=== PATIENT | female | born 1960 | race American Indian/Alaskan Native ===

== ENCOUNTER 2016-08-27 10:48 | Outpatient (CLI) | payer BC | END 2016-08-27 10:49 | disposition home or self-care (01) | LOC: LAB 10:48 | DX: Z00.00 Encounter for general adult medical examination without abnormal findings (principal) | CPT/HCPCS: 36415; 85652; 86140 ==

== ENCOUNTER 2016-09-04 10:24 | Emergency (ER) | payer BC ==
[2016-09-04 11:16] VITALS: BP 153/97
--- NOTE | 2016-09-04 13:13 | Emergency Department Report ---
ED Extremity Problem HPI - General Chief complaint: Extremity Injury, Lower Stated complaint: RT HIP PAIN Time Seen by Provider: 09/04/16 12:07 Source: patient, family Mode of arrival: Ambulatory Limitations: Physical Limitation (unable to bear weight on right leg), Other - History of Present Illness Initial comments: Patient presents today with right hip pain. She states that she went to Dr. Mcwilliams with [facility] and had an x-ray done and was told she needs a right hip replacement. She was told that she needs a cortisone injection in this hip but she declined Dr. Mcwilliams to do it due to insurance coverage. Patient admits to a 10/10 pain in the right hip that radiates down her anterior right leg. She has been using crutches and avoiding weight-bearing due to pain. She denies redness or swelling to the right hip, leg. She admits to taken ibuprofen which has not helped, she also admits to taken hydrocodone from a friend which she state also did not help. MD Complaint: extremity pain -: Gradual Location: right, lower extremity Radiation: distal Severity scale (0 -10): 10 Quality: aching Consistency: constant Improves with: nothing Worsens with: weight bearing, walking Associated Symptoms: denies other symptoms - Related Data Home Medications Medication Instructions Recorded Confirmed Last Taken Ibuprofen [Motrin] 800 mg PO Q8HR PRN 09/04/16 09/04/16 09/04/16 Valsartan-Hctz 80-12.5 mg Tab 1 tab PO DAILY 09/04/16 09/04/16 09/04/16 Previous Rx's Medication Instructions Recorded Last Taken Type Diclofenac Dr [Mendez Alcocer] 75 mg PO DAILY #7 tablet 09/04/16 Unknown Rx methOCARBAMOL [Robaxin TAB] 500 mg PO BID #14 tab 09/04/16 Unknown Rx Allergies Allergy/AdvReac Type Severity Reaction Status Date / Time No Known Allergies Allergy Unverified 09/04/16 11:16 ED Review of Systems ROS: Stated complaint: RT HIP PAIN Other details as noted in HPI Constitutional: denies: chills, fever Respiratory: denies: cough, shortness of breath, wheezing Cardiovascular: denies: chest pain, palpitations Gastrointestinal: denies: abdominal pain, nausea, diarrhea Genitourinary: denies: urgency, dysuria, discharge Musculoskeletal: as per HPI Skin: denies: rash, lesions Neurological: denies: headache, weakness, paresthesias ED Past Medical Hx - Past Medical History Previous Medical History?: Yes Additional medical history: Right hip pain and right knee - Surgical History Past Surgical History?: Yes Additional Surgical History: Right knee surgery - Medications Home Medications: Home Medications Medication Instructions Recorded Confirmed Last Taken Type Diclofenac Dr [Voltaren Dr] 75 mg PO DAILY #7 tablet 09/04/16 Unknown Rx Ibuprofen [Motrin] 800 mg PO Q8HR PRN 09/04/16 09/04/16 09/04/16 History Valsartan-Hctz 80-12.5 mg Tab 1 tab PO DAILY 09/04/16 09/04/16 09/04/16 History methOCARBAMOL [Robaxin TAB] 500 mg PO BID #14 tab 09/04/16 Unknown Rx ED Physical Exam - General Limitations: Other General appearance: alert, in no apparent distress - Head Head exam: Present: atraumatic, normocephalic - Eye Eye exam: Present: normal appearance - Respiratory Respiratory exam: Present: normal lung sounds bilaterally. Absent: respiratory distress - Cardiovascular Cardiovascular Exam: Present: regular rate, normal rhythm. Absent: systolic murmur, diastolic murmur, rubs, gallop - GI/Abdominal GI/Abdominal exam: Present: soft, normal bowel sounds - Expanded Lower Extremity Exam Right Hip exam: Present: normal inspection. Absent: full ROM, tenderness, swelling Upper Leg exam: Present: normal inspection, full ROM. Absent: tenderness, swelling Knee exam: Present: normal inspection, full ROM. Absent: tenderness, swelling Lower Leg exam: Present: normal inspection, full ROM. Absent: tenderness, swelling Ankle exam: Present: normal inspection, full ROM. Absent: tenderness, swelling Foot/Toe exam: Present: normal inspection, full ROM. Absent: tenderness, swelling Neuro vascular tendon exam: Present: no vascular compromise. Absent: abnormal cap refill Gait: Positive: unable to bear weight (using crutches) - Back Exam Back exam: Present: normal inspection, full ROM. Absent: tenderness - Neurological Exam Neurological exam: Present: alert, oriented X3 - Psychiatric Psychiatric exam: Present: normal affect, normal mood ED Course Vital Signs 09/04/16 11:09 Temperature 98.3 F Pulse Rate 59 L Respiratory 18 Rate Blood Pressure 153/97 Blood Pressure 153/97 [Right] O2 Sat by Pulse 100 Oximetry ED Medical Decision Making - Medical Decision Making Patient presents with right hip pain. Patient states had a hip x-ray and a knee x-ray on the right side and was told she needs a hip replacement per [facility] surgeon Dr. Mcwilliams. She has been taken ibuprofen and has also taken hydrocodone for the pain. She has not yet gotten a steroid injection due to insurance coverage. I will give her diclofenac daily 2 weeks and her own set of crutches and she is using her uncles at this time. I will refer her to orthopedic surgeon. - Differential Diagnosis hip fracture, OA Critical Care Time: No Critical care attestation.: If time is entered above; I have spent that time in minutes in the direct care of this critically ill patient, excluding procedure time. ED Disposition Clinical Impression: Osteoarthritis of right hip, Right hip pain Disposition: DISCHARGED TO HOME OR SELFCARE Is pt being admited?: No Does the pt Need Aspirin: No Condition: Stable Instructions: Osteoarthritis (ED) Additional Instructions: Please understand the importance of following up with orthopedic surgeon as it can decreased functionality and use of right leg with avoidance. Please understand that you are not to take diclofenac with any other NSAID including advil, naproxen as it can affect her kidneys. Please also avoid drinking alcohol while taking any kind of muscle relaxant. Please follow-up if discoloration of right lower extremity, increased pain, redness,swelling. Prescriptions: Diclofenac Dr [Voltaren Dr] 75 mg PO DAILY #7 tablet methOCARBAMOL [Robaxin TAB] 500 mg PO BID #14 tab Referrals: PRIMARY CARE, [Primary Care Provider] - 3-5 Days Forms: Work/School Release Form(ED) Time of Disposition: 13:52
[2016-09-04] MEDS ORDERED: TORADOL IM ONE (13:40)
== END 2016-09-04 14:27 | disposition home or self-care (01) ==
LOC: ED 10:24
DX: M16.11 Unilateral primary osteoarthritis, right hip (principal)
CPT/HCPCS: 96372; 99283; J1885